=== PATIENT | female | born 1985 | race Two or more races ===

== ENCOUNTER 2024-10-02 15:41 | Emergency (ER) | payer OTHER ==
[~2024-10-02] VITALS: Ht 167.6 cm; Wt 67.1 kg
[2024-10-02] MEDS ORDERED: GUAIFENESIN/DEXTROMETHORPHAN 100MG/10ML BLIST.PACK PO ONE (17:00)
[2024-10-02 17:33] LABS: HEMATOCRIT 39.2 % (36.0-45.00); HEMOGLOBIN 12.9 g/dL (12.0-15.00); MEAN CORPUSCULAR HEMOGLOBIN 28.3 pg (27.00-32.0); MEAN CORPUSCULAR HGB CONC 32.9 g/dl (32.0-36.0); PLATELET COUNT 158 K/uL (150-450); RED BLOOD COUNT 4.56 M/uL (4.00-6.00); RED CELL DISTRIBUTION WIDTH 13.6 % (11.5-14.5)
[2024-10-02] MEDS ORDERED: OSELTAMIVIR PHOSPHATE 75 MG CAPSULE PO ONE (18:00)
[2024-10-02] MEDS ORDERED: OSEL75CA PO (18:01)
[2024-10-02] MEDS ORDERED: TUSSIN DM LIQU118 ML PO (18:01)
== END 2024-10-02 18:24 | disposition home or self-care (01) ==
LOC: ER 15:44
PROVIDERS: Preventive Medicine Public Health & General Preventive Medicine
DX: J10.1 Influenza due to other identified influenza virus with other respiratory manifestations (principal); Z20.822 Contact with and (suspected) exposure to COVID-19